=== PATIENT | male | born 1990 | race Caucasian/White ===

== ENCOUNTER 2022-05-27 22:46 | Emergency (ER) | payer OTHER | END 2022-05-28 00:23 | disposition home or self-care (01) | LOC: FB.ED 22:46 | DX: S69.91XA Unspecified injury of right wrist, hand and finger(s), initial encounter (principal); X58.XXXA Exposure to other specified factors, initial encounter; Y99.0 Civilian activity done for income or pay | CPT/HCPCS: 73130-RT; 99283 ==